=== PATIENT | female | born 2000 | race Caucasian/White ===

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

== ENCOUNTER → 2019-08-15 | Outpatient (CLI) | payer BC, OTHER ==
[~2019-08-15] MED LIST: ACET1TAB55 PO; AMIT25TA PO; IBUP-1114 PO; TOPI50TA9; [UNRECOGNIZED DRUG - CODE] PO; bcps PO
--- NOTE | 2019-08-16 04:36 | REP ---
Clinical: Right-sided Pelvic and perineal pain . Technique: Transabdominal pelvic ultrasound followed by transvaginal examination for better evaluation of the endometrium and adnexa with color Doppler evaluation of the ovaries. Findings: Bladder is unremarkable and measures 5.8 x 2.8 x 4.7 cm . Normal anteverted uterus measures 8.0 x 3.2 x 4.7 cm . The endometrial complex measures 5.6 mm thickness. IUD identified in central satisfactory position. No discrete uterine or endometrial abnormalities are appreciated. Bilateral ovaries are normal in appearance and vascularity without evidence for torsion. Right ovary measures 5.1 x 2.3 x 4.9 cm and includes 4.2 x 2.1 x 4.6 cm cyst ; R I = 0.62 . Left ovary measures 2.6 x 1.0 x 2.0 cm ; R I = 0.68 . No pelvic fluid or adnexal mass lesion . Impression: 1. normal uterus. 2. 4.6 cm right ovarian cyst likely physiologic. Consider reevaluation in 4-6 weeks to evaluate for resolution. Electronically Signed by Semaj Berrios MD 08/16/2019 04:27 A
== END ==
LOC: M RAD 09:46
PROVIDERS: ATTEND Advanced Practice Midwife
DX: N83.201 Unspecified ovarian cyst, right side (principal)

== ENCOUNTER → 2021-02-03 | Outpatient (REF) | payer OTHER ==
[~2021-02-03] MED LIST changes: -AMIT25TA PO; +AMIT25TA17 PO
== END ==
LOC: M SFHCWAGY 12:51
PROVIDERS: ATTEND Specialist
DX: Z12.4 Encounter for screening for malignant neoplasm of cervix (principal)

== ENCOUNTER → 2021-07-15 | Outpatient (REF) | payer OTHER | LOC: M LAB REF 19:50 | PROVIDERS: ATTEND Physician Assistant | DX: R05.9 Cough, unspecified (principal); J02.9 Acute pharyngitis, unspecified ==

== ENCOUNTER → 2022-08-04 | Outpatient (REF) | payer OTHER | LOC: M SFHCWAGY 13:09 | PROVIDERS: ATTEND Advanced Practice Midwife | DX: N89.8 Other specified noninflammatory disorders of vagina (principal) ==

== ENCOUNTER → 2023-02-28 | Outpatient (REF) | payer OTHER ==
[~2023-02-28] MED LIST changes: +TOPI-254; -TOPI50TA9
[2023-02-28 09:13] LABS: BASO % 0.3 % (0.0-1.0); EOS # 0.1 10^3/uL (0.0-0.5); EOS % 1.8 % (0.0-3.0); HEMATOCRIT 38.4 % (36.0-47.0); HEMOGLOBIN 12.5 g/dl (12.0-15.5); LYMPH # 1.3 10^3/uL (1.5-5.0); MEAN CORPUSCULAR HEMOGLOBIN 30.3 pg (27.0-33.0); MEAN CORPUSCULAR HGB CONC 32.6 g/dl (32.0-36.5); MONO # 0.5 10^3/uL (0.0-0.8); MONO % 7.9 % (2.0-8.0); NEUTROPHILS # 4.1 10^3/uL (1.5-8.5); NEUTROPHILS % 68.7 % (36.0-66.0); PLATELET COUNT, AUTOMATED 323 10^3/uL (150-450); RED BLOOD COUNT 4.13 10^6/uL (4.00-5.40)
[2023-02-28 09:38] LABS: ALBUMIN 3.7 G/DL (3.2-5.2); ALKALINE PHOSPHATASE 77 U/L (46-116); ALT/SGPT 41 U/L (7.0-40); AST/SGOT 20 U/L (<34); BILIRUBIN,TOTAL 0.4 MG/DL (0.3-1.2); BLOOD UREA NITROGEN 12 MG/DL (9-23); CALCIUM LEVEL 8.9 MG/DL (8.5-10.1); CARBON DIOXIDE LEVEL 27 MMOL/L (20-31); CHLORIDE LEVEL 107 MMOL/L (98-107); CHOLESTEROL LEVEL 162 MG/DL (<200); CHOLESTEROL RISK RATIO 3.01 (<5); GLOMERULAR FILTRATION RATE > 60.0 (>60); GLUCOSE, FASTING 102 MG/DL (60-100); HDL CHOLESTEROL 53.7 MG/DL (>40); LDL CHOLESTEROL 84.5 MG/DL (<100); NON-HDL-C 108.3 MG/DL; POTASSIUM SERUM 4.1 MMOL/L (3.5-5.1); SODIUM LEVEL 139 MMOL/L (136-145); TOTAL PROTEIN 6.6 G/DL (5.7-8.2); TRIGLYCERIDES LEVEL 119 MG/DL (<150)
[2023-02-28 09:39] LABS: THYROID STIMULATING HORMONE 1.098 uIU/ML (0.55-4.78)
[2023-02-28 09:40] LABS: FREE T4 0.95 NG/DL (0.89-1.76)
== END ==
LOC: M LAB REF 08:58
PROVIDERS: ATTEND Family Medicine
DX: Z13.29 Encounter for screening for other suspected endocrine disorder (principal); Z13.0 Encounter for screening for diseases of the blood and blood-forming organs and certain disorders involving the immune mechanism; Z13.220 Encounter for screening for lipoid disorders

== ENCOUNTER → 2023-10-10 | Outpatient (REF) | payer OTHER ==
[~2023-10-10] MED LIST changes: -AMIT25TA17 PO; +AMIT25TA19 PO; +TOPI-21; -TOPI-254
== END ==
LOC: M SFHCWAGY 15:29
PROVIDERS: ATTEND Specialist
DX: Z01.419 Encounter for gynecological examination (general) (routine) without abnormal findings (principal)

== ENCOUNTER → 2024-07-04 | Outpatient (REF) | payer OTHER | LOC: M LAB REF 17:29 | PROVIDERS: ATTEND Family Medicine | DX: L01.00 Impetigo, unspecified (principal) ==

== ENCOUNTER → 2024-12-20 | Outpatient (CLI) | payer OTHER | LOC: M WHC 14:26 | PROVIDERS: ATTEND Nurse Practitioner Family | DX: Z34.82 Encounter for supervision of other normal pregnancy, second trimester (principal) ==

== ENCOUNTER → 2025-01-08 | Outpatient (REF) | payer OTHER | LOC: M LAB REF 11:49 | PROVIDERS: ATTEND Physician Assistant | DX: A08.4 Viral intestinal infection, unspecified (principal) ==

== ENCOUNTER → 2025-01-21 | Outpatient (CLI) | payer OTHER | LOC: M WHC 12:49 | PROVIDERS: ATTEND Nurse Practitioner Family | DX: Z34.80 Encounter for supervision of other normal pregnancy, unspecified trimester (principal) ==

== ENCOUNTER → 2025-02-19 | Outpatient (CLI) | payer OTHER ==
[2025-02-19 13:50] LABS: HEMATOCRIT 35.2 % (36.0-47.0); HEMOGLOBIN 11.3 g/dl (12.0-15.5); MEAN CORPUSCULAR HEMOGLOBIN 30.2 pg (27.0-33.0); MEAN CORPUSCULAR HGB CONC 32.1 g/dl (32.0-36.5); MEAN CORPUSCULAR VOLUME 94.1 fl (80.0-96.0); PLATELET COUNT, AUTOMATED 330 10^3/uL (150-450); RED BLOOD COUNT 3.74 10^6/uL (4.00-5.40); WHITE BLOOD COUNT 9.4 10^3/uL (4.0-10.0)
[2025-02-19 13:55] LABS: GLUCOSE CHALLENGE TEST 1 HOUR 162 MG/DL (LESS THAN 140)
[2025-02-19 14:30] LABS: HIV 1&2 SCREEN NEGATIVE (NEGATIVE)
[2025-02-19 14:38] LABS: HEPATITIS C VIRUS ABY INDEX 0.05 INDEX (<0.8)
[2025-02-19 15:55] LABS: Trichomonas vaginalis (AMP) NOT DETECTED (NEGATIVE)
[2025-02-19 16:19] LABS: GC DNA AMPLIFICATION NEGATIVE (NEGATIVE)
== END ==
LOC: M PLALAB 09:41
PROVIDERS: ATTEND Advanced Practice Midwife
DX: Z34.82 Encounter for supervision of other normal pregnancy, second trimester (principal); Z3A.00 Weeks of gestation of pregnancy not specified

== ENCOUNTER → 2025-04-09 | Outpatient (CLI) | payer OTHER | LOC: M WHC 12:37 | PROVIDERS: ATTEND Advanced Practice Midwife | DX: O28.8 Other abnormal findings on antenatal screening of mother (principal) ==

== ENCOUNTER → 2025-04-16 | Outpatient (REF) | payer OTHER, BC | LOC: M PLALAB 08:46 | PROVIDERS: ATTEND Advanced Practice Midwife | DX: Z34.03 Encounter for supervision of normal first pregnancy, third trimester (principal); Z3A.36 36 weeks gestation of pregnancy ==

== ENCOUNTER → 2025-04-18 | Outpatient (CLI) | payer OTHER | LOC: M WHC 13:20 | PROVIDERS: ATTEND Obstetrics & Gynecology | DX: O24.419 Gestational diabetes mellitus in pregnancy, unspecified control (principal); Z3A.36 36 weeks gestation of pregnancy ==

== ENCOUNTER 2025-04-29 14:13 | Outpatient (CLI) | payer OTHER, BC ==
[~2025-04-29] VITALS: Ht 172.7 cm; Wt 110.9 kg
[2025-04-29] VITALS (9 sets, daily range): BP systolic 107–135; BP diastolic 56–87
[2025-04-29] MEDS ORDERED: PRENTAB9 PO (14:42)
[2025-04-29] MEDS ORDERED: MAGN100T PO (14:42)
[2025-04-29] MEDS ORDERED: diphenhydrAMINE 50 MG/ML VIAL IM ONE (14:50)
[2025-04-29 15:11] LABS: PLATELET COUNT, AUTOMATED 243 10^3/uL (150-450)
[2025-04-29] MEDS: METOCLOPRAMIDE 10 MG TAB PO ONE (15:15)
[2025-04-29] MEDS ORDERED: METF500T13 PO (15:27)
[2025-04-29] MEDS ORDERED: METF10004 PO (15:27)
[2025-04-29] MEDS ORDERED: HOME MED LIST COMPLETE! XX SCH (15:30)
[2025-04-29 15:36] LABS: ALT/SGPT 14 U/L (7.0-40); AST/SGOT 13 U/L (<34); CREATININE FOR GFR 0.62 MG/DL (0.55-1.30); GLOMERULAR FILTRATION RATE > 90.0 (>60); LDH LACTATE DEHYDROGENASE 156 U/L (120-246)
[2025-04-29 16:17] LABS: TOTAL PROTEIN,RANDOM URINE 15.2 MG/DL (0.0-14.0)
[2025-04-29] MEDS: FIORICET TAB PO ONE (16:47)
== END 2025-04-29 18:46 | disposition home or self-care (01) ==
LOC: M LDO 14:13
PROVIDERS: ATTEND Advanced Practice Midwife
DX: O26.893 Other specified pregnancy related conditions, third trimester (principal); O24.415 Gestational diabetes mellitus in pregnancy, controlled by oral hypoglycemic drugs; R51.0 Headache with orthostatic component, not elsewhere classified; Z3A.38 38 weeks gestation of pregnancy
CPT/HCPCS: 36415; 59025; 82247; 82570; 83615; 84156; 84450; 84460; 84550; 85027; G0463

== ENCOUNTER → 2025-05-02 | Outpatient (CLI) | payer BC, OTHER ==
[~2025-05-02] MED LIST changes: +MAGN100T PO; +METF10004 PO; +METF500T13 PO; +PRENTAB9 PO; +TUMS500C PO
== END ==
LOC: M WHC 12:26
PROVIDERS: ATTEND Obstetrics & Gynecology
DX: O24.419 Gestational diabetes mellitus in pregnancy, unspecified control (principal); Z3A.38 38 weeks gestation of pregnancy

== ENCOUNTER 2025-05-06 08:39 | Inpatient (IN) | payer OTHER, BC ==
[2025-05-06] VITALS (11 sets, daily range): BP systolic 114–139; BP diastolic 62–94
[~2025-05-06] VITALS: Ht 172.7 cm; Wt 112.9 kg
[~2025-05-06 08:39] MED LIST changes: -TUMS500C PO
[2025-05-06] MEDS ORDERED: TUMS500C PO (08:55)
[2025-05-06] MEDS ORDERED: HOME MED LIST COMPLETE! XX SCH (08:55)
[2025-05-06 09:30] LABS: PLATELET COUNT, AUTOMATED 245 10^3/uL (150-450)
[2025-05-06 10:05] LABS: ALT/SGPT 13 U/L (7.0-40); AST/SGOT 17 U/L (<34); CALCIUM LEVEL 9.1 MG/DL (8.5-10.1); CARBON DIOXIDE LEVEL 21 MMOL/L (20-31); CHLORIDE LEVEL 104 MMOL/L (98-107); CREATININE FOR GFR 0.67 MG/DL (0.55-1.30); GLOMERULAR FILTRATION RATE > 90.0 (>60); POTASSIUM SERUM 3.9 MMOL/L (3.5-5.1); SODIUM LEVEL 139 MMOL/L (136-145)
[2025-05-06 10:38] LABS: HIV 1&2 SCREEN NEGATIVE (NEGATIVE)
[2025-05-06] MEDS ORDERED: TRANEXAMIC ACID INJection 1,000 MG in NS 100 ML IV PRN (10:55)
[2025-05-06] MEDS ORDERED: OXYTOCIN DRIP 30 UNITS in IV 1 EA IV PRN (10:55)
[2025-05-06] MEDS ORDERED: OXYTOCIN INJ 10UNITS/ML 1ML VIAL IV PRN (10:55)
[2025-05-06] MEDS ORDERED: METHYLERGONOVINE MALEATE 0.2 MG/ML 1 ML VIAL IM PRN (10:55)
[2025-05-06] MEDS ORDERED: LIDOCAINE 1% MDV 20 ML VIAL INFIL PRN (10:55)
[2025-05-06] MEDS: miSOPROStol 50 MCG 1/2 TABLET BUC ONE ×2 (11:09→15:25)
[2025-05-06 15:09] LABS: HEPATITIS C VIRUS ABY INDEX < 0.02 INDEX (<0.8)
[2025-05-06] MEDS: miSOPROStol 50 MCG 1/2 TABLET PO ONE (19:30)
[2025-05-07] VITALS (43 sets, daily range): BP systolic 101–165; BP diastolic 56–100; TEMP 98
[2025-05-07] MEDS: miSOPROStol 50 MCG 1/2 TABLET PO SCH (09:01)
[2025-05-07] MEDS ORDERED: diphenhydrAMINE 50 MG/ML VIAL IV PRN (09:25)
[2025-05-07] MEDS ORDERED: ONDANSETRON 4MG 2ML VIAL IV PRN (09:25)
[2025-05-07] MEDS ORDERED: EPIDURAL/PCA KEYS XX PRN (09:25)
[2025-05-07] MEDS ORDERED: NALOXONE INJ 0.4 MG/1 ML VIAL IV PRN (09:25)
[2025-05-07] MEDS ORDERED: LR 500 ML IV PRN (09:25)
[2025-05-07] MEDS: OXYTOCIN DRIP 30 UNITS in IV 1 EA IV SCH (14:04)
[2025-05-07] MEDS: LR 1,000 ML IV SCH (18:41)
[2025-05-07] MEDS: metFORMIN 500 MG TAB PO SCH (21:07)
[2025-05-07] MEDS: FENTANYL/ROPIVACAINE/NACL BAG 100 ML EPIDURAL SCH (21:13)
[2025-05-08] VITALS (17 sets, daily range): BP systolic 112–157; BP diastolic 69–94; O2SAT 97–98
[2025-05-08] MEDS ORDERED: OXYTOCIN DRIP 30 UNITS in IV 1 EA IV SCH (01:55)
[2025-05-08] MEDS ORDERED: CALCIUM CARBONATE 500 MG CHEW U/D PO PRN (01:55)
[2025-05-08] MEDS ORDERED: ACETAMINOPHEN 325 MG TAB PO PRN (01:55)
[2025-05-08] MEDS ORDERED: IBUPROFEN 600 MG TAB PO PRN (01:55)
[2025-05-08] MEDS ORDERED: ONDANSETRON 4MG 2ML VIAL IV PRN (01:55)
[2025-05-08] MEDS ORDERED: RHOGAM 300MCG (1500IU) INJ IM SCH (01:55)
[2025-05-08] MEDS ORDERED: LR 1,000 ML IV SCH (01:55)
[2025-05-08] MEDS: ACETAMINOPHEN 500 MG TAB PO PRN (04:43)
[2025-05-08] MEDS: DOCUSATE SODIUM 100 MG CAPSULE PO PRN (08:18)
[2025-05-08] MEDS: PRENATAL VITAMINS CHEWABLE TABLET PO SCH (08:18)
[2025-05-08] MEDS: FERROUS SULFATE 325 MG TAB PO SCH (08:18)
[2025-05-08] MEDS: IBUPROFEN 800 MG TAB PO PRN (17:36)
[2025-05-09 06:00] VITALS: BP 130/88; O2SAT 97
[2025-05-09] MEDS: ANUSOL HC CREAM 30 GM TOP PRN (08:30)
[2025-05-09] MEDS: DIBUCAINE 1% OINTMENT 30 GM TOP PRN (08:35)
[2025-05-09 17:51] VITALS: BP 137/95; O2SAT 97
[2025-05-10 06:00] VITALS: BP 136/90; O2SAT 99
[2025-05-10] MEDS ORDERED: MEASLES,MUMPS,RUBELLA VACCINE INJ (MMR-II) SC.IMMUN ONE (09:00)
== END 2025-05-10 12:07 | disposition home or self-care (01) | DRG 807 ==
LOC: M LDI 08:39 → M OBS 05-08 04:04
PROVIDERS: ADMIT Obstetrics & Gynecology; ATTEND Obstetrics & Gynecology
PROC: 3E0P7GC Introduction of Other Therapeutic Substance into Female Reproductive, Via Natural or Artificial Opening (ICD-10-PCS; 2025-05-06)
PROC: 10907ZC Drainage of Amniotic Fluid, Therapeutic from Products of Conception, Via Natural or Artificial Opening (ICD-10-PCS; 2025-05-07)
PROC: 10E0XZZ Delivery of Products of Conception, External Approach (ICD-10-PCS; principal; 2025-05-08)
PROC: 0HQ9XZZ Repair Perineum Skin, External Approach (ICD-10-PCS; 2025-05-08)
DX: O24.425 Gestational diabetes mellitus in childbirth, controlled by oral hypoglycemic drugs (principal); Z37.0 Single live birth; Z3A.39 39 weeks gestation of pregnancy; O70.0 First degree perineal laceration during delivery